=== PATIENT | female | born 1975 | race Two or more races ===

== ENCOUNTER 2021-07-18 11:53 | Emergency (ER) | payer OTHER ==
[~2021-07-18] VITALS: Ht 162.6 cm; Wt 84.8 kg
[2021-07-18] MEDS ORDERED: SYNTHROID137 MCG PO (12:21)
[2021-07-18] MEDS ORDERED: MULTI VITAMIN1 EACH PO (12:21)
[2021-07-18] MEDS ORDERED: MEDROXYPROGESTE10 MG PO (17:08)
== END 2021-07-18 17:55 | disposition home or self-care (01) ==
LOC: ER 11:53
DX: N93.9 Abnormal uterine and vaginal bleeding, unspecified (principal); D25.9 Leiomyoma of uterus, unspecified; N83.202 Unspecified ovarian cyst, left side